=== PATIENT | female | born 1955 | race Caucasian/White ===

== ENCOUNTER 2024-01-06 11:17 | Emergency (ER) | payer OTHER | END 2024-01-06 12:16 | disposition home or self-care (01) | LOC: ERS 11:17 → EEVIPCON 11:17 → ERS 12:16 | DX: S20.219A Contusion of unspecified front wall of thorax, initial encounter (principal); I10 Essential (primary) hypertension; Z87.891 Personal history of nicotine dependence; Z79.899 Other long term (current) drug therapy; Y04.8XXA Assault by other bodily force, initial encounter | CPT/HCPCS: 71046 ==